=== PATIENT | male | born 1955 | race Caucasian/White ===

== ENCOUNTER 2018-07-22 08:44 | Observation (INO) | payer BC ==
[~2018-07-22] VITALS: Ht 170.2 cm; Wt 102.3 kg
--- NOTE | ~2018-07-22 | EC ---
PATIENT:CLINTON HOWELL DATE OF SERVICE: 07/22/18 SEX: M MEDICAL RECORD: [id number] DATE OF : 53 LOCATION:[place] [address] AGE OF PATIENT: 63 ADMISSION DATE: 07/22/18 REFERRING PHYSICIAN: INTERPRETING PHYSICIAN: KASANDRA SANCHEZ MD ECHOCARDIOGRAM REPORT ECHO CHARGES 4 ECHO COMPLETE Date: 07/22/18 CLINICAL DIAGNOSIS: TIA ECHOCARDIOGRAPHIC MEASUREMENTS (adult normal given) AC root (d.<3.7cm) 3.0 cm LV Septum d (<1.2 cm> 1.4 cm Valve Excursion 1.5 cm LV Septum (systole) 1.7 cm Left Atria (s.<4.0cm> 3.8 cm LVPW d(<1.2cm) 1.5 cm RV (d.<2.3cm) 3.7 cm LVPW (sytole) 1.6 cm LV diastole(<5.6CM) 4.9 cm MV E-F(>70mm/sec) 3 cm LV systole 3.5 cm LVOT Diameter 2.0 cm MV exc.(>10mm) 1.0 cm Est.ejection fraction (50-75%) % DOPPLER: LVIT cm/sec A 67.0 cm/sec E 77.0 cm/sec LA cm/sec RVSP 16 mmHg LVOT 77 cm/sec AOP1/2T m/s Asc. Ao 109 cm/sec RVOT 97 cm/sec RA cm/sec PA 107 cm/sec AV Gradient Peak 4.79 mmHg AV Mean 2.56 mmHg AV Area 2.0 cm MV Gradient Peak 2.5 mmHg MV Mean 1.0 mmHg MV Area cm COMMENTS: Therapeutic Recreation Specialist: Feliciano VIZCARRA Patient Service Specialist: Feliciano Fraser TAPE# PACS Pericardial Effusion N DATE OF SERVICE: 07/22/2018 FINDINGS: 1. Left ventricular chamber size is within normal limits. Left ventricular systolic function is normal. Overall ejection fraction is estimated at 55%. 2. Left atrium is within normal limits at 3.0 cm. Right atrium and right ventricle sizes are mildly dilated. 3. Valvular structures have normal structure and motion. 4. Doppler interrogation reveals no significant valvular insufficiency or stenosis. Pulmonary systolic pressure is estimated at 16 mmHg. ECHOCARDIOGRAM REPORT [id number] CILNTON HOWELL 5. No evidence of pericardial effusion or left ventricular thrombus. TRANSINT:[id number] Voice Confirmation ID: [id number] DOCUMENT ID: [id number] KASANDRA SANCHEZ MD at 1718 CC: [id number] DICTATION DATE: 07/22/18 1518 RN TELE: 07/22/18 1716 ADM IN [facility] [address] [place] [id number]
[2018-07-22] MEDS ORDERED: OMEPRAZOLE20 M1 PO (08:49)
[2018-07-22] MEDS ORDERED: SYMBICORT 16010.2 GM INH (08:50)
[2018-07-22 09:54] LABS: BASOPHILS 0.4 % (0-2); EOSINOPHILS 1.8 % (0-7); HEMATOCRIT 45.4 % (42.0-54.0); HEMOGLOBIN 16.2 g/dL (13.5-17.5); IMMATURE GRANULOCYTES 0.2 % (0-5); LYMPHOCYTES 15.1 % (15-50); MCH 30.7 pg (26.0-34.0); MCHC 35.7 g/dL (31.0-37.0); MCV 86.1 fL (80.0-100.0); MEAN PLATELET VOLUME 10.2 fL (7.4-10.4); MONOCYTES 8.7 % (2-11); NEUTROPHILS 73.8 % (40-80); PLATELET COUNT 143 10x3/uL (130-400); RBC 5.27 10x6/uL (4.20-6.10); RDW 12.6 % (11.5-14.5)
[2018-07-22 09:59] LABS: INR 1.04 (0.85-1.17); PROTIME 13.1 SECONDS (11.6-15.0)
[2018-07-22 10:05] LABS: ALBUMIN 4.2 g/dL (3.4-5.0); ALKALINE PHOSPHATASE 67 U/L (46-116); ALT (SGPT) 33 U/L (10-68); BILIRUBIN - TOTAL 1.36 mg/dL (0.2-1.3); CALC OSMOLALITY 283 mosm/kg (275-300); CALCIUM 9.6 mg/dL (8.5-10.1); CARBON DIOXIDE 27.3 mmol/L (21.0-32.0); CHLORIDE - SERUM 105 mmol/L (98-107); CREATININE - SERUM 0.9 mg/dL (0.6-1.3); GLUCOSE 121 mg/dL (74-106); POTASSIUM - SERUM 3.8 mmol/L (3.5-5.1); PROTEIN - SERUM 7.4 g/dL (6.4-8.2); SODIUM 142 mmol/L (136-145); UREA NITROGEN 12 mg/dL (7-18); eGFR NON AFRICAN AMERICAN 90 mL/min (90-120)
[2018-07-22 13:44] VITALS: Ht 170.2 cm; Wt 102.3 kg
[2018-07-22 16:40] VITALS: BP 160/93
[2018-07-22 23:00] VITALS: BP 127/84
[2018-07-23 01:00] VITALS: BP 134/81
[2018-07-23 03:00] VITALS: BP 129/79
[2018-07-23 05:20] LABS: BASOPHILS 0.2 % (0-2); EOSINOPHILS 2.3 % (0-7); HEMATOCRIT 44.2 % (42.0-54.0); HEMOGLOBIN 15.4 g/dL (13.5-17.5); IMMATURE GRANULOCYTES 0.2 % (0-5); LYMPHOCYTES 25.2 % (15-50); MCH 30.4 pg (26.0-34.0); MCHC 34.8 g/dL (31.0-37.0); MCV 87.4 fL (80.0-100.0); MEAN PLATELET VOLUME 10.4 fL (7.4-10.4); MONOCYTES 12.2 % (2-11); NEUTROPHILS 59.9 % (40-80); PLATELET COUNT 136 10x3/uL (130-400); RBC 5.06 10x6/uL (4.20-6.10); RDW 12.6 % (11.5-14.5); WBC 4.4 10x3/uL (4.8-10.8)
[2018-07-23 05:29] LABS: CARBON DIOXIDE 28.4 mmol/L (21.0-32.0); CHLORIDE - SERUM 104 mmol/L (98-107); POTASSIUM - SERUM 3.8 mmol/L (3.5-5.1); SODIUM 142 mmol/L (136-145)
[2018-07-23 06:06] LABS: CALC OSMOLALITY 282 mosm/kg (275-300); CHOL - HDL RATIO 5.6 ratio (2.3-4.9); CHOLESTEROL, TOTAL 222 mg/dL (0-200); GLUCOSE 107 mg/dL (74-106); HDL CHOLESTEROL 40 mg/dL (32-96); LDL CHOLESTEROL 159 mg/dL (0-100); TRIGLYCERIDE 116 mg/dL (30-200); UREA NITROGEN 13 mg/dL (7-18); eGFR NON AFRICAN AMERICAN 80 mL/min (90-120)
[2018-07-23] MEDS ORDERED: ZIAC 5-6.25 MG1 TAB PO (06:15)
[2018-07-23] MEDS ORDERED: LITE COAT ASPI325 MG PO (06:15)
[2018-07-23] MEDS ORDERED: PRAVACHOL80 MG PO (06:15)
== END 2018-07-23 10:17 | disposition home or self-care (01) ==
LOC: D.ER 08:44 → OBSVTIME 11:32 → D.EDHOLD 11:32 → D.SDCHOLD 11:55 → D.EDHOLD 12:54
PROVIDERS: Family Medicine
DX: I63.9 Cerebral infarction, unspecified (principal); I10 Essential (primary) hypertension